=== PATIENT | male | born 1955 | race Caucasian/White ===

== ENCOUNTER → 2017-10-02 | Outpatient (CLI) | payer BC ==
[~2017-10-02] MED LIST: COZAAR 25 MG TA25 M1 PO; KEFLEX500 M1 PO; OMEPRAZOLE20 M3 PO; XARELTO15 MG PO; XARELTO20 MG PO; [UNRECOGNIZED DRUG - OTHER] PO
== END ==
LOC: M.MRI 11:01
DX: M25.461 Effusion, right knee (principal)

== ENCOUNTER 2017-11-07 11:03 | Emergency (ER) | payer BC ==
[~2017-11-07] VITALS: Ht 180.3 cm; Wt 91.6 kg
[2017-11-07] MEDS ORDERED: COZAAR 25 MG TA25 M1 PO (11:15)
[2017-11-07] MEDS ORDERED: OMEPRAZOLE20 M3 PO (11:15)
[2017-11-07] MEDS ORDERED: [UNRECOGNIZED DRUG - OTHER] PO (11:16)
[2017-11-07] MEDS ORDERED: KEFLEX500 M1 PO (12:24)
[2017-11-07 12:33] VITALS: BP 154/89
== END 2017-11-07 12:34 | disposition home or self-care (01) ==
LOC: M.ERS 11:03
DX: S61.012A Laceration without foreign body of left thumb without damage to nail, initial encounter (principal); E11.9 Type 2 diabetes mellitus without complications; Y99.8 Other external cause status; W26.8XXA Contact with other sharp object(s), not elsewhere classified, initial encounter; Y93.89 Activity, other specified; Y92.89 Other specified places as the place of occurrence of the external cause

== ENCOUNTER 2017-11-09 11:38 | Emergency (ER) | payer BC ==
[~2017-11-09] VITALS: Ht 180.3 cm; Wt 91.6 kg
[~2017-11-09 11:38] MED LIST changes: -XARELTO15 MG PO; -XARELTO20 MG PO
[2017-11-09 12:15] LABS: HEMATOCRIT 44.3 % (42.0-52.0); HEMOGLOBIN 14.9 gm/dL (14.0-18.0); MCH 30.7 pg (26.0-34.0); MCHC 33.6 g/dL (28.0-37.0); MCV 91.4 fL (80.0-100.0); MPV 8.8 fl. (7.2-11.1); NUCLEATED RBCS 0 /100WBC; PLATELET COUNT* 285 thou/uL (150-400); RBC 4.85 mil/uL (4.50-6.00); RDW-CV 13.1 % (10.5-14.5); WBC 7.9 thou/uL (4.0-11.0)
[2017-11-09 12:28] LABS: ANION GAP 10 mmol/L (7-16); BUN 22 mg/dL (7-18); CALCIUM 8.2 mg/dL (8.5-10.1); CHLORIDE 106 mmol/L (98-107); CO2 24 mmol/L (21-32); CREATININE 1.2 mg/dL (0.6-1.3); GLUCOSE 110 mg/dL (70-99); POTASSIUM 3.9 mmol/L (3.5-5.1); SODIUM 140 mmol/L (136-145)
[2017-11-09 12:31] LABS: APTT 25.7 Seconds (25.0-31.3); PROTIME 10.4 Seconds (9.20-11.50)
[2017-11-09 12:39] LABS: ALBUMIN 3.7 g/dL (3.4-5.0); ALKALINE PHOSPHATASE 66 U/L (46-116); NT-PRO BRAIN NAT PEPTIDE 41 pg/mL (<300); SGOT 19 U/L (15-37); SGPT 32 U/L (30-65); TOTAL BILIRUBIN 0.4 mg/dL (<0.1-1.0); TOTAL PROTEIN 7.4 g/dL (6.4-8.2); TROPONIN-I LEVEL <0.06 ng/mL (<0.06)
[2017-11-09 13:06] LABS: ABSOLUTE EOSINOPHILS 0.1 thou/uL (0.0-0.7); ABSOLUTE LYMPHOCYTES 2.6 thou/uL (0.8-5.3); ABSOLUTE MONOCYTES 0.8 thou/uL (0.0-1.2); ABSOLUTE NEUTROPHILS 4.4 thou/uL (1.6-8.1); MYELOCYTES 1 %
[2017-11-09 13:07] LABS: PLATELET ESTIMATE ADEQUATE
[2017-11-09] MEDS ORDERED: XARELTO20 MG PO (14:17)
[2017-11-09] MEDS ORDERED: XARELTO15 MG PO (14:17)
[2017-11-09 14:43] VITALS: BP 180/97
--- NOTE | 2017-11-10 17:01 | EKG ---
[place] [address] ELECTROCARDIOGRAM REPORT Name: SHANIQUA NGUYEN Room: [facility]#: [id number] Admission: 11/09/17 Attend Phys: Discharge: 11/09/17 Date of : 53 Report #: [id number] THIS REPORT FOR: //name// [facility] ED Test Date: 2017-11-09 Test Time: 12:15:59 Pat Name: SHANIQUA NGUYEN Department: Room: Gender: M Registered Travel Nurse: JUDITH GARCIA : 1955 Requested By: Dea Borjas Order Number: [id number] MD: Ramo Cleary Measurements Intervals [place] Rate: 73 P: 24 [place]: 170 QRS: 27 QRSD: 88 T: 4 QT: 375 QTc: 414 Interpretive Statements Sinus rhythm No previous ECG available for comparison Electronically Signed On 11-10-2017 17:00:55 CDT by Ramo Cleary [email or web address] <ELECTRONICALLY SIGNED> By: Ramo Cleary MD, [facility] 11/10/17 1700 1215 1215 Ramo Cleary MD, FACC /EPI
== END 2017-11-09 14:45 | disposition home or self-care (01) ==
LOC: M.ERS 11:38
PROVIDERS: Personal Emergency Response Attendant
DX: I26.99 Other pulmonary embolism without acute cor pulmonale (principal); I10 Essential (primary) hypertension; K21.9 Gastro-esophageal reflux disease without esophagitis; Z90.49 Acquired absence of other specified parts of digestive tract

== ENCOUNTER → 2018-07-02 | Outpatient (CLI) | payer BC ==
[~2018-07-02] MED LIST changes: +XARELTO15 MG PO; +XARELTO20 MG PO
== END ==
LOC: M.MRI 16:59
DX: S73.191A Other sprain of right hip, initial encounter (principal); M16.0 Bilateral primary osteoarthritis of hip; M51.87 Other intervertebral disc disorders, lumbosacral region; G89.29 Other chronic pain; X58.XXXA Exposure to other specified factors, initial encounter; Y93.89 Activity, other specified; Y92.89 Other specified places as the place of occurrence of the external cause; Y99.8 Other external cause status

== ENCOUNTER → 2018-08-25 | Outpatient (CLI) | payer BC | END | disposition home or self-care (01) | LOC: M.RAD 12:39 | DX: M16.11 Unilateral primary osteoarthritis, right hip (principal); M70.71 Other bursitis of hip, right hip; Z98.890 Other specified postprocedural states; Z86.711 Personal history of pulmonary embolism; Z79.01 Long term (current) use of anticoagulants; Z79.899 Other long term (current) drug therapy ==

== ENCOUNTER → 2018-12-03 | Outpatient (CLI) | payer BC | LOC: M.MRI 16:01 | DX: M75.102 Unspecified rotator cuff tear or rupture of left shoulder, not specified as traumatic (principal); M19.012 Primary osteoarthritis, left shoulder ==

== ENCOUNTER → 2019-03-16 | Outpatient (CLI) | payer BC | END | disposition home or self-care (01) | LOC: M.RAD 12:46 | DX: M25.551 Pain in right hip (principal); G89.29 Other chronic pain; Z98.890 Other specified postprocedural states; Z79.899 Other long term (current) drug therapy; Z86.711 Personal history of pulmonary embolism; Z79.01 Long term (current) use of anticoagulants ==

== ENCOUNTER 2020-11-01 15:19 | Emergency (ER) | payer BC ==
[~2020-11-01] VITALS: Ht 180.3 cm; Wt 90.7 kg
[2020-11-01 15:46] LABS: ABSOLUTE BASOPHILS 0.1 thou/uL (0.0-0.2); ABSOLUTE EOSINOPHILS 0.1 thou/uL (0.0-0.7); ABSOLUTE LYMPHOCYTES 1.9 thou/uL (0.8-5.3); ABSOLUTE MONOCYTES 0.5 thou/uL (0.0-1.2); ABSOLUTE NEUTROPHILS 5.2 thou/uL (1.6-8.1); BASOPHILS 1.1 %; EOSINOPHILS 1.7 %; HEMATOCRIT 41.8 % (42.0-52.0); HEMOGLOBIN 14.2 gm/dL (14.0-18.0); MCH 30.5 pg (26.0-34.0); MCHC 33.9 g/dL (28.0-37.0); MCV 89.8 fL (80.0-100.0); MONOCYTES 6.9 %; MPV 8.6 fl. (7.2-11.1); NUCLEATED RBCS 0 /100WBC; PLATELET COUNT* 281 thou/uL (150-400); POLYS 66.3 %; RBC 4.65 mil/uL (4.50-6.00); RDW-CV 13.3 % (10.5-14.5); WBC 7.9 thou/uL (4.0-11.0)
[2020-11-01 15:46] LABS: URINE BILIRUBIN NEGATIVE (Negative); URINE BLOOD 3+ (Negative); URINE CLARITY CLEAR; URINE COLOR YELLOW; URINE GLUCOSE-RANDOM NEGATIVE (Negative); URINE KETONES NEGATIVE (Negative); URINE LEUKOCYTES-REFLEX NEGATIVE (Negative); URINE NITRITE-REFLEX NEGATIVE (Negative); URINE PROTEIN NEGATIVE (Negative)
[2020-11-01 15:59] LABS: MUCUS None Seen strn/LPF (None Seen); URINE RBC >20 Many /HPF (0-2)
[2020-11-01 16:00] LABS: BACTERIA-REFLEX None Seen /HPF (None Seen); CASTS None Seen /LPF (None Seen); CRYSTALS None Seen /LPF (None Seen)
[2020-11-01 16:01] LABS: SQUAMOUS 0-3 Few /LPF (0-3); URINE WBC-REFLEX None Seen /HPF (0-5)
[2020-11-01 16:37] LABS: CALCIUM 8.4 mg/dL (8.5-10.1); CREATININE 1.3 mg/dL (0.6-1.3); POTASSIUM 4.3 mmol/L (3.5-5.1)
[2020-11-01 16:41] LABS: TOTAL BILIRUBIN 0.4 mg/dL (<0.1-1.0); TOTAL PROTEIN 7.3 g/dL (6.4-8.2)
[2020-11-01] MEDS ORDERED: FLEXERIL PO (18:19)
[2020-11-01] MEDS ORDERED: BENTYL 10 MG CA10 M1 PO (18:19)
[2020-11-01 18:50] VITALS: BP 141/70
== END 2020-11-01 18:51 | disposition home or self-care (01) ==
LOC: M.ERS 15:19
PROVIDERS: Nurse Practitioner Family
DX: I10 Essential (primary) hypertension (principal); K21.9 Gastro-esophageal reflux disease without esophagitis; Z90.49 Acquired absence of other specified parts of digestive tract; Z98.890 Other specified postprocedural states; Z86.711 Personal history of pulmonary embolism; Z79.899 Other long term (current) drug therapy; K59.00 Constipation, unspecified